=== PATIENT | male | born 1985 | race Hispanic/Latino ===

== ENCOUNTER 2017-11-28 10:33 | Emergency (ER) | payer OTHER, SELFPAY ==
[~2017-11-28 10:33] MED LIST: Sodium Chloride Irrig Solution 250 ML BOT ONE
[2017-11-28] MEDS ORDERED: Triple Antibiotic Oint 1 GM Packet ONE (11:25)
[2017-11-28] MEDS ORDERED: Cephalexin 500 MG CAP ONE (11:25)
[2017-11-28] MEDS ORDERED: Adacel (T-DAP) 0.5 ML VIAL ONE (11:26)
== END 2017-11-28 11:44 | disposition home or self-care (01) ==
LOC: MADERS 10:33
DX: S61.411A Laceration without foreign body of right hand, initial encounter (principal); F17.210 Nicotine dependence, cigarettes, uncomplicated; Z23 Encounter for immunization; W26.0XXA Contact with knife, initial encounter; Y93.H9 Activity, other involving exterior property and land maintenance, building and construction; Y92.34 Swimming pool (public) as the place of occurrence of the external cause
CPT/HCPCS: 12001; 90471; 90715; J2001